=== PATIENT | female | born 1970 | race Two or more races ===

== ENCOUNTER 2020-05-29 14:33 | Outpatient (CLI) | payer OTHER ==
[~2020-05-29 14:33] MED LIST: DICYCLOMINE HCL20 MG; HYOSCYAMINE0.125 M1; METOPROLOL SUCC25 MG; PROTONIX40 MG; RANITIDINE HCL300 MG
== END 2020-05-29 14:48 | disposition home or self-care (01) ==
LOC: RAD 14:33
PROVIDERS: ATTEND Psychiatry & Neurology Neurology
DX: M48.02 Spinal stenosis, cervical region (principal); M54.12 Radiculopathy, cervical region; G24.3 Spasmodic torticollis; M13.88 Other specified arthritis, other site
CPT/HCPCS: 72141

== ENCOUNTER 2020-06-03 13:16 | Outpatient (CLI) | payer OTHER | END 2020-06-03 14:10 | disposition home or self-care (01) | LOC: NUCLEAR 13:16 | PROVIDERS: ATTEND Psychiatry & Neurology Neurology | DX: I87.2 Venous insufficiency (chronic) (peripheral) (principal) ==

== ENCOUNTER 2020-09-19 14:16 | Outpatient (CLI) | payer OTHER | END 2020-09-19 14:28 | disposition home or self-care (01) | LOC: MAMO-SONO 14:16 | PROVIDERS: ATTEND Obstetrics & Gynecology | DX: Z12.31 Encounter for screening mammogram for malignant neoplasm of breast (principal); N60.11 Diffuse cystic mastopathy of right breast ==

== ENCOUNTER 2020-10-20 12:33 | Outpatient (CLI) | payer OTHER | END 2020-10-20 12:45 | disposition home or self-care (01) | LOC: SONOGRAMA 12:33 | PROVIDERS: ATTEND Surgery | DX: N60.11 Diffuse cystic mastopathy of right breast (principal); N60.12 Diffuse cystic mastopathy of left breast ==

== ENCOUNTER 2021-04-20 13:53 | Outpatient (CLI) | payer OTHER | END 2021-04-20 13:56 | disposition home or self-care (01) | LOC: SONOGRAMA 13:53 → MAMO-SONO 14:15 | PROVIDERS: ATTEND Surgery | DX: N60.11 Diffuse cystic mastopathy of right breast (principal); N60.12 Diffuse cystic mastopathy of left breast ==

== ENCOUNTER 2022-01-15 10:12 | Outpatient (CLI) | payer OTHER | END 2022-01-15 11:17 | disposition home or self-care (01) | LOC: SONOGRAMA 10:12 | PROVIDERS: ATTEND Surgery | DX: N60.11 Diffuse cystic mastopathy of right breast (principal); N60.12 Diffuse cystic mastopathy of left breast ==

== ENCOUNTER 2022-09-30 10:05 | Outpatient (CLI) | payer OTHER | END 2022-09-30 10:08 | disposition home or self-care (01) | LOC: MAMO-SONO 10:05 | PROVIDERS: ATTEND Surgery | DX: N60.11 Diffuse cystic mastopathy of right breast (principal); N60.12 Diffuse cystic mastopathy of left breast ==